=== PATIENT | female | born 1955 | race American Indian/Alaskan Native ===

== ENCOUNTER 2018-09-27 12:41 | Outpatient (CLI) | payer MEDICARE ==
--- NOTE | 2018-09-27 13:42 | Mammography Report ---
Left mammogram: Call back for further evaluation of microcalcifications identified on screening exam in April 2018. Calcification is identified in the mid CC projection are again noted. On the additional magnification view it would appear that at least some if not all of these calcifications lie in vessels. These are partially identified in the superior breast on lateral projection. The findings are not otherwise remarkable or new. Impression: Probably benign breast calcifications. Recommendation: Reevaluate calcifications during her normal screening mammogram in approximately 6 months. BI-RADS CATEGORY: 3 = Probably benign ACR BI-RADS MAMMOGRAPHIC CODES: 0 = Needs additional imaging evaluation; 1 = Negative; 2 = Benign; 3 = Probably benign; 4 = Suspicious; 5 = Malignant; 6 = Known biopsy-proven malignancy COMMENT: 1. Dense breast tissue, i.e., adenosis, fibrocystic changes, etc., may obscure an underlying neoplasm. 2. Approximately 10% of cancers are not detected with mammography. 3. A negative mammography report should not delay biopsy if a clinically suspicious mass is present.
== END 2018-09-27 12:42 | disposition home or self-care (01) ==
LOC: SPVWC 12:41
PROVIDERS: ATTEND Hospitalist
DX: R92.8 Other abnormal and inconclusive findings on diagnostic imaging of breast (principal)